=== PATIENT | female | born 1960 | race Caucasian/White ===

== ENCOUNTER → 2017-06-06 | Outpatient (CLI) | payer BC ==
--- NOTE | ~2017-06-06 | MY11 ---
[facility] A Service of [facility] RADIOLOGY TEXT RESULTS PATIENT: ESTEPHANIA THURSTON LOCATION: [facility] : 60 UNIT #: [id number] AGE: [address]: Leticia Christina MD SEX: F ORDER DR: [id number] [address] [address] [id number] MR#: [id number] Acc #: [id number] NAME: ESTEPHANIA THURSTON : 1960 SEX: F STUDY DATE/TIME: 06/06/2017 16:27 UNIT: [facility] ROOM: STUDY DESCRIPTION: MY Mammogram Screening Dig [place] Attending Physician: Leticia Christina M.D. Ordering Physician: Leticia Christina M.D. Primary Care Physician: Leticia Christina M.D. MEDICAL IMAGING REPORT This report is preliminary unless electronic signature is present. EXAM Digital screening mammogram 06/06/2017 HISTORY 56-year-old woman, no risk elevation. Prior excisional left breast biopsy. Annual screening. COMPARISON STUDIES Comparison mammograms date to 12/04/2007 with most recent 10/23/2015. FINDINGS Digital imaging of each breast was completed utilizing screening protocol. Review includes FDA-approved CAD device. Breast parenchyma is fatty replaced. Small oval well-circumscribed nodule left subareolar location is stable. Nodularity upper outer quadrant left breast is stable to less conspicuous. I see no suspicious mass and no interval occurring microcalcifications or architectural distortion. IMPRESSION Benign mammogram. Annual screening recommended. BIRADS: 2 Benign Finding. Patients over the age of 40 are entered into a reminder system with target due date for the next mammogram. A result letter will also be sent to the patient. Dictated by... Aurelio Gomez M.D. THIS IS AN ELECTRONICALLY VERIFIED REPORT [facility] A Service [facility] RADIOLOGY TEXT RESULTS PATIENT: ESTEPHANIA THURSTON LOCATION: [facility] : 60 UNIT #: [id number] AGE: [address]: Leticia Christina MD SEX: F ORDER DR: Aurelio Gomez M.D. at 06/09/2017 7:59 AM JBB/pcl TD: 06/06/2017 20:49 JOB #: [id number] MEDICAL IMAGING REPORT Page 1 of 1
== END | disposition home or self-care (01) ==
LOC: SMAM 05-30 15:00
DX: Z12.31 Encounter for screening mammogram for malignant neoplasm of breast (principal); Z98.890 Other specified postprocedural states
CPT/HCPCS: G0202